=== PATIENT | female | born 1970 | race Caucasian/White ===

== ENCOUNTER 2016-08-12 22:05 | Inpatient (IN) | payer MEDICAID ==
[~2016-08-12] VITALS: Ht 160 cm; Wt 129.0 kg
--- NOTE | ~2016-08-12 | ER ---
PATIENT'S NAME: [facility] AGE: 46 Y [address] ROOM: [place] [address] LOCATION: GPCU ADMIT DATE: 08/12/2016 ER/Outpatient Report DISCHARGE DATE: FAMILY PHYSICIAN: Reynaldo Maharaj MD ATTENDING PHYSICIAN: CHRISTINA WESLEY Time of Arrival: 2205 hours. Time of Evaluation: 2225 hours. CHIEF COMPLAINT: Shortness of breath. HISTORY OF PRESENT ILLNESS: This is a 46-year-old lady, who presents to the ER this evening with worsening of shortness of breath over the past 6 days. The patient does have a past medical history of pulmonary hypertension, congestive heart failure, and has had pulmonary edema in the past. The patient states that she was hospitalized last year, was intubated, and spent some time in the ICU. She states ever since then she has been having troubles with her lungs. She states that she does not follow with any service center coordinator or rn ed, but does see her primary care physician. She states that she was evaluated in clinic on Sunday because she was gaining fluid and they added metolazone to her diuretic regimen, which was Bumex. The patient states that she lost approximately 13 pounds since Sunday, but feels like her shortness of breath progressively got worse. She states she was coughing up some green thick phlegm, but now is not able to cough up any phlegm. She states she has coughing episodes where she feels like she is going to pass out or black out. She states that she has had leg swelling and has severe orthopnea. She denies any fever or chills. No chest pain, but just states that it is a tight pressure from not being able to cough up any phlegm. ALLERGIES: LATEX SENSITIVITY. PAST MEDICAL HISTORY: 1. Significant for chronic respiratory failure. 2. Pulmonary hypertension. 3. Right-sided heart failure. 4. Obesity. 5. Diabetes and hypothyroidism. SOCIAL HISTORY: The patient denies any smoking use. No drugs or alcohol. REVIEW OF SYSTEMS: PATIENT'S NAME: [facility] AGE: 46 Y [address] ROOM: [place] [address] LOCATION: GPCU ADMIT DATE: 08/12/2016 ER/Outpatient Report DISCHARGE DATE: FAMILY PHYSICIAN: Reynaldo Maharaj MD ATTENDING PHYSICIAN: CHRISTINA WESLEY A 10-point review of systems was completed, was negative with the exception of those discussed in the HPI. PHYSICAL EXAMINATION: VITAL SIGNS: Height 5 feet and 3 inches stated, weight 134 kg taken, blood pressure is 120/74, pulse 98, respirations 24, temperature 98.8 degrees tympanically, and saturations 94% on room air. Dutch Coma score is 15. GENERAL: Alert, obese female, in mild distress. HEENT: Head: Normocephalic. She does display moist mucous membranes. Eyes: Pupils are equal and reactive to light. NECK: Supple. No lymphadenopathy noted. HEART: Regular rate and rhythm. No lifts, thrills, or murmurs. RESPIRATORY: Clear to auscultation bilaterally. She does have a harsh nonproductive cough during examination. ABDOMEN: Soft. Obese. It is nontender. She has good bowel sounds throughout. EXTREMITIES: She has 2 to 3+ pitting edema bilaterally in the lower extremities. SKIN: She does have some bilateral lower extremity stasis dermatitis. NEURO: Cranial nerves II through XII grossly intact. Gait was not observed and she was assisted to the bed by nursing staff. LABORATORY DATA AND X-RAYS: CBC: White count of 6.2, hemoglobin 12.3, platelets 225, and ANC is 4.9. CMS: Potassium 3.4, glucose is 101, BUN 44, creatinine 2.5, alkaline phosphatase is 151, estimated GFR is 21, CPK is 57, CK-MB is less than 0.5, troponin I is less than 0.040, proBNP is 5803. EKG shows sinus rhythm. She does have some right axis deviation. Chest x-ray shows cardiomegaly, no acute infiltrate was seen. IMPRESSION: 1. Acute on chronic hypoxic respiratory failure. 2. Acute kidney insufficiency. 3. Acute exacerbation of congestive heart failure. 4. History of diabetes. ASSESSMENT AND PLAN: The patient does not have a primary care physician here in [place], therefore we called Dr. Wesley, who is on-call for the Hospitalist Service, and he will be admitting the patient for further care. The patient was given albuterol breathing treatment, which she states helped her open up a little bit during her stay here. The patient and patient's understand and agree with care. PATIENT'S NAME: BRITTANY RAMON [facility] AGE: 46 Y [address] ROOM: [address] [place], [place] [address] LOCATION: [facility] ADMIT DATE: 08/12/2016 ER/Outpatient Report DISCHARGE DATE: FAMILY PHYSICIAN: Reynaldo Maharaj MD ATTENDING PHYSICIAN: HCRISTINA WESLEY ABEL GAMA PA-C FOR MD ÁLVARO ULRICH/modl /[id number] d: 08/13/16 1911 t: 09/11/16 0957, OUTPATIENT REPORT
--- NOTE | ~2016-08-12 | DS ---
PATIENT'S NAME: BRITTANY RAMON [facility] AGE: 46 Y [address] ROOM: [address] [place], [place] [address] LOCATION: GPCU ADMIT DATE: 08/12/2016 Discharge Summary DISCHARGE DATE: 08/19/2016 FAMILY PHYSICIAN: Reynaldo Maharaj MD ATTENDING PHYSICIAN: Digna Wesley HOSPITAL COURSE: The patient was admitted on August 12, 2016, complaining of shortness of breath. The patient has a past medical history of pulmonary hypertension, right-sided congestive heart failure, diabetes, hypothyroidism, and she uses BiPAP or 3 L at night. The patient was admitted last year with some massive fluid overload, and she was diuresed and discharged home. The patient started having shortness of breath that started a few weeks before admission and gotten worse, and she reported to the hospital when the situation had gotten worse. She uses BiPAP 18/10 with 3 L of oxygen for NAILA/OHS. Upon admission to the hospital, influenza screening showed that she has influenza type A. The patient was started on Tamiflu. Sputum culture showed Staph aureus, methicillin sensitive, and she was started on doxycycline. Echo at this visit showed that she had an ejection fraction of 50% and RVSP of 79. The patient was started on 5 L of oxygen on admission. She continued to improve throughout her course here, and today, she is on room air, stating has not been with shortness of breath. Plan is to discharge her home, and will continue the course of Tamiflu and the antibiotic course of doxycycline. Also, she was diuresed, and nephrology were onboard during the hospital course. On admission, kidney function was acute on chronic failure. Kidney back to the baseline. Creatinine is 1.3 today. The patient is still on metformin. We highly recommend switching to a different oral hypoglycemic medication. PHYSICAL EXAMINATION: On the day of discharge. VITAL SIGNS: Temperature is 97.6, pulse of 84, respiratory rate of 18, blood pressure is 121/82, and oxygen saturation is 92% on room air. GENERAL APPEARANCE: Alert, awake, oriented x3. RESPIRATORY: Clear to auscultation bilaterally. Cardiovascular: S1 plus S2 plus 0. GASTROINTESTINAL: Soft, lax, nontender. NEUROLOGIC: Grossly normal. LABORATORY DATA: On discharge, sodium of 142, potassium 3.4, chloride of 107, bicarbonate of 24, BUN of 43, and creatinine of 1.3. CONDITION ON DISCHARGE: Improved. DISCHARGE DESTINATION: Home. CONSULTANTS ON THIS ADMISSION: PATIENT'S NAME: BRITTANY RAMON [facility] AGE: 46 Y [address] ROOM: [address] [place] [address] LOCATION: GPCU ADMIT DATE: 08/12/2016 Discharge Summary DISCHARGE DATE: 08/19/2016 FAMILY PHYSICIAN: Reynaldo Maharaj MD ATTENDING PHYSICIAN: Digna Wesley 1. Nephrology, Dr. Metz. 2. Respiratory. DIET: Diabetic healthy diet, low sodium. ACTIVITY: Advance as tolerated. FOLLOWUP: Please follow up with primary care in one week and with Nephrology in 2 weeks. FRANCISCA DOTY MD MG/modl /[id number] d: 08/19/16 1324 t: 10/02/16 0838, DISCHARGE SUMMARY
--- NOTE | ~2016-08-12 | DS ---
PATIENT'S NAME: BRITTANY RAMON [facility] AGE: 46 Y [address] ROOM: [address] [place], [place] [address] LOCATION: GPCU ADMIT DATE: 08/12/2016 Discharge Summary DISCHARGE DATE: 08/19/2016 FAMILY PHYSICIAN: Reynaldo Maharaj MD ATTENDING PHYSICIAN: Digna Wesley HOSPITAL COURSE: The patient was admitted on August 12, 2016, complaining of shortness of breath. The patient has a past medical history of pulmonary hypertension, right-sided congestive heart failure, diabetes, hypothyroidism, and she uses BiPAP or 3 L at night. The patient was admitted last year with some massive fluid overload, and she was diuresed and discharged home. The patient started having shortness of breath that started a few weeks before admission and gotten worse, and she reported to the hospital when the situation had gotten worse. She uses BiPAP 18/10 with 3 L of oxygen for NAILA/OHS. Upon admission to the hospital, influenza screening showed that she has influenza type A. The patient was started on Tamiflu. Sputum culture showed Staph aureus, methicillin sensitive, and she was started on doxycycline. Echo at this visit showed that she had an ejection fraction of 50% and RVSP of 79. The patient was started on 5 L of oxygen on admission. She continued to improve throughout her course here, and today, she is on room air, stating has not been with shortness of breath. Plan is to discharge her home, and will continue the course of Tamiflu and the antibiotic course of doxycycline. Also, she was diuresed, and nephrology were onboard during the hospital course. On admission, kidney function was acute on chronic failure. Kidney back to the baseline. Creatinine is 1.3 today. The patient is still on metformin. We highly recommend switching to a different oral hypoglycemic medication. PHYSICAL EXAMINATION: On the day of discharge. VITAL SIGNS: Temperature is 97.6, pulse of 84, respiratory rate of 18, blood pressure is 121/82, and oxygen saturation is 92% on room air. GENERAL APPEARANCE: Alert, awake, oriented x3. RESPIRATORY: Clear to auscultation bilaterally. Cardiovascular: S1 plus S2 plus 0. GASTROINTESTINAL: Soft, lax, nontender. NEUROLOGIC: Grossly normal. LABORATORY DATA: On discharge, sodium of 142, potassium 3.4, chloride of 107, bicarbonate of 24, BUN of 43, and creatinine of 1.3. CONDITION ON DISCHARGE: Improved. DISCHARGE DESTINATION: Home. CONSULTANTS ON THIS ADMISSION: PATIENT'S NAME: BRITTANY RAMON [facility] AGE: 46 Y [address] ROOM: [address] [place] [address] LOCATION: GPCU ADMIT DATE: 08/12/2016 Discharge Summary DISCHARGE DATE: 08/19/2016 FAMILY PHYSICIAN: Reynaldo Maharaj MD ATTENDING PHYSICIAN: Digna Wesley 1. Nephrology, Dr. Metz. 2. Respiratory. DIET: Diabetic healthy diet, low sodium. ACTIVITY: Advance as tolerated. FOLLOWUP: Please follow up with primary care in one week and with Nephrology in 2 weeks. FRANCISCA DOTY MD MG/modl /[id number] d: t: 08/19/16 1331, DISCHARGE SUMMARY
--- NOTE | ~2016-08-12 | PUL ---
PATIENT'S NAME: BRITTANY RAMON [facility] AGE: 46 Y [address] ROOM: [address] [address] LOCATION: GPCU ADMIT DATE: 08/12/2016 Pulmonary DISCHARGE DATE: FAMILY PHYSICIAN: Reynaldo Maharaj MD ATTENDING PHYSICIAN: CHRISTINA AGUERO NAME OF PROCEDURE: Bedside Spirometry DATE OF PROCEDURE: August 13, 2016 TECH: ATripe, CARTOON DESIGNER REASON FOR EXAM: Dyspnea RESULTS: Spirometry does not demonstrate significant airflow obstruction. There is no significant change post bronchodilator. TARIK RIVERA MD /[id number] dtt: 08/25/16 1304 Ron David E. dtd: 08/15/16 1247
--- NOTE | ~2016-08-12 | ECHO ---
Transthoracic Echocardiography Report (TTE) Demographics Patient Name BRITTANY RAMON Date of Study 08/14/2016 Patient Number [id number] Visit Number [id number] Date of 1970 Room Number [address] Accession Number [id number] Gender Female Age 46 year(s) Referring Carol Ann Kelley MD Frame Table Operator Bren Kincaid Physician Lupillo Chew [facility] MD Jorge Castillo Physician Interpreting Amy Horseback Riding Instructor Physician Kathy BOLDEN Supervising Ordering Physician Lupillo Chew MD/MLP Nurse Stress Bingo Checker Conclusions Contractility Score Summary At rest the following contractility abnormalities were noted: Dyskinesis of the Mid anterior, the Mid oma-septal, the Mid infero-septal, the Apical septal, the Basal oma-septal, the Basal infero-septal, the Apical anterior and the Basal anterior segments. Contractility of all other segments appeared normal. Summary Technically difficult exam. The estimated left ventricular ejection fraction is 50%.The left ventricle is normal in size .The interventricular septum is flattened during systole and diastole consistent with right ventricular pressure and volume overload. Severely dilated RHCs. Mildly reduced right ventricular function. Increased RA pressures. Severe tricuspid regurgitation by color Doppler. There is severe pulmonary hypertension. The pulmonary pressure (RVSP) is 79 mmHg. Mild-moderate pulmonic valve regurgitation by color Doppler. Procedure Type of Study TTE procedure:2D Echocardiogram, Echo with Contrast. Procedure Date Date: 08/14/2016 Start: 09:38 AM Study Location: Inpatient Portable Technical Quality: Adequate visualization Indications:Congestive heart failure. Appropriate Use Criteria: 9 Patient Status: Routine Contrast Medium: Definity. Amount - 3 ml HR: 94 bpm BP: 112/64 mmHg M-Mode/2D Measurements LV Diastolic Dimension: 3.7 cm LV Systolic Dimension: 2.7 cm LV Septum Diastolic: 1.07 cm LV PW Diastolic: 0.82 cm Cardiac Output: 2.96 l/min LA Dimension: 3.5 cm LVOT: 1.8 cm LVOT VTI: 12.4 cm RV Base: 4.28 cm LV Stroke volume: 31.54 ml RV Length: 7.15 cm TAPSE: 1.31 cm TDI-S': 11.8 cm/s Doppler Measurements AV Peak Velocity: 1.16 m/s MV Peak E-Wave: 0.59 m/s AV Peak Gradient: 5.38 mmHg MV Peak A-Wave: 0.43 m/s AV Mean Gradient: 3 mmHg MV E/A Ratio: 1.38 LVOT Peak Velocity: 0.79 m/s MV P1/2t: 32 msec TR Gradient:64 mmHg PV Peak Velocity: 0.87 m/s Estimated RAP:15 mmHg PV Peak Gradient: 3.01 mmHg Estimated RVSP: 79 mmHg Estimated PASP: 79 mmHg E' Septal Velocity: 0.06 m/s A' Septal Velocity: 0.08 m/s E' Lateral Velocity: 0.12 m/s A' Lateral Velocity: 0.08 m/s Findings Left Ventricle The left ventricle is normal in size and function. The interventricular septum is flattened during systole and diastole which is consistent with right ventricular pressure / and or volume overload. Right Ventricle Mildly reduced right ventricular function. Severely dilated right ventricle. Left Atrium Normal left atrial size. Right Atrium The right atrium is severely dilated. IVC measures 2.45 cm with no inspiratory collapse. Mitral Valve Trivial mitral regurgitation by color Doppler. Mild mitral annular calcification. Trivial calcification of the mitral valve. Aortic Valve Normal aortic valve structure and function. Tricuspid Valve Severe tricuspid regurgitation by color Doppler. There is severe pulmonary hypertension. The pulmonary pressure (RVSP) is 79 mmHg. Pulmonic Valve Mild pulmonic valve regurgitation by color Doppler. Pericardial Effusion No evidence of pericardial effusion. Miscellaneous Visualized portions of the aortic root and ascending aorta appear normal in size. Pleural Effusion No evidence of pleural effusion. Contractility Score LV regional wall motion:(0-Non visualized 1-Normal 2-Hypokinesis 3-Akinesis 4-Dyskinesis 5-Aneurysm) Signature dtt: Kathy Reyes dtd: 08/14/16 0938 Physician Self Edit
--- NOTE | ~2016-08-12 | CON ---
PATIENT'S NAME: [facility] AGE: 46 Y [address] ROOM: [place] [id number] LOCATION: GPCU ADMIT DATE: 08/12/2016 Consultation DISCHARGE DATE: FAMILY PHYSICIAN: Reynaldo Maharaj MD ATTENDING PHYSICIAN: CHRISTINA AGUERO DATE OF CONSULTATION: 08/13/2016 REFERRING PHYSICIAN: Corky Velasquez MD REFERRING: Hospitalist Service. REASON FOR REFERRAL: Shortness of breath. HISTORY OF PRESENT ILLNESS: The patient is a 46-year-old massively obese woman, admitted with progressive shortness of breath since mid July and fluid retention. She was hospitalized about a year ago here with massive volume overload presumably due to right-sided heart failure. The cause of her right-sided heart failure was attributed to obesity and obstructive sleep apnea. Interestingly, she had a positive D-dimer at that time. PE protocol CT scans were ordered, but never completed presumably due to renal efficiency. I do not see any document studies, ruling out pulmonary embolism at that time. Ultimately, she was discharged after massive diuresis and has been wearing nighttime oxygen and BiPAP since then. She says her face is full with both of those. Starting in mid July, she was experiencing more shortness of breath both with activity and recumbency. She has. She also states she started retaining more fluid. She ultimately transferred here for admission due to those symptoms. PAST MEDICAL HISTORY: Please refer to the admission history and physical exam. FAMILY HISTORY: As above and per attending physician H and P. SOCIAL HISTORY: As above and per attending physician H and P. REVIEW OF SYSTEMS: As above and per attending physician H and P. PHYSICAL EXAMINATION: GENERAL: Awake, alert, sitting in the chair, no distress at rest. Oxygen 1-2 L by nasal cannula. Massively obese. PATIENT'S NAME: [facility] AGE: 46 Y [address] ROOM: [place] [id number] LOCATION: GPCU ADMIT DATE: 08/12/2016 Consultation DISCHARGE DATE: FAMILY PHYSICIAN: Reynaldo Maharaj MD ATTENDING PHYSICIAN: CHRISTINA AGUERO ENT: Unremarkable. NECK: Normal. CHEST: Obese. LUNGS: Diminished, but clear. HEART: Regular. ABDOMEN: Obese, nontender. EXTREMITIES: Significant edema. ASSESSMENT: Exacerbation of right-sided heart failure. PLAN: I think we need to rule out pulmonary embolic disease given her prior positive D-dimer and no studies to rule that out. We will also check bedside spirometry. Chest x-ray demonstrates elevation of the right hemidiaphragm which may indicate diaphragmatic paralysis which would also contribute to her right-sided heart failure. We will follow with you. MD DURGA ASCENCIO/modl /[id number] d: 08/13/167 t: 08/25/16 1302, CONSULTATION REPORT
--- NOTE | ~2016-08-12 | HP ---
PATIENT'S NAME: [facility] AGE: 46 Y [address] ROOM: [place] [address] LOCATION: GPCU ADMIT DATE: 08/12/2016 History & Physical DISCHARGE DATE: FAMILY PHYSICIAN: Reynaldo Maharaj MD ATTENDING PHYSICIAN: CHRISTINA AGUERO DATE OF SERVICE: CHIEF COMPLAINT: Shortness of breath. HISTORY OF PRESENT ILLNESS: A 46-year-old lady with a past medical history of pulmonary hypertension, right-sided congestive heart failure, diabetes, and hypothyroidism who does not follow with a photography manager or a professor of architecture. Lives at home. Started having shortness of breath over the course of last 4 to 6 weeks associated with some pressure in the chest which is nonradiating, present all the time. No alleviating or aggravating factors. She denied having any cough or sputum production along with her shortness of breath. She also does have obesity hypoventilation syndrome and does use BiPAP 18 x 10 at home, with 3 L of oxygen at nighttime. She sought medical attention 2 weeks ago when metolazone was added to her diuretic regimen which was Bumex and she was able to lose about 13 pounds of her weight, but her pulmonary symptoms in terms of shortness of breath never got better and progressively got worse which triggered her visit to the emergency department tonight. On further review of systems, she did endorse having severe orthopnea as well as leg swelling but denied having any PND. She never had a coronary artery disease. REVIEW OF SYSTEMS: All other systems reviewed were negative except what is mentioned in the HPI. PAST MEDICAL HISTORY: 1. Significant for chronic respiratory failure. 2. Pulmonary hypertension. 3. Right-sided heart failure. 4. Obesity hypoventilation syndrome. 5. Diabetes. 6. Hypothyroidism. MEDICATIONS: Please see MAR. ALLERGIES: NO KNOWN DRUG ALLERGIES. PATIENT'S NAME: [facility] AGE: 46 Y [address] ROOM: [place] [address] LOCATION: GPCU ADMIT DATE: 08/12/2016 History & Physical DISCHARGE DATE: FAMILY PHYSICIAN: Reynaldo Maharaj MD ATTENDING PHYSICIAN: CHRISTINA AGUERO FAMILY HISTORY: Family history is significant for premature coronary artery disease in mother when she had coronary artery disease at the age of 46. SOCIAL HISTORY: Never a smoker. No drugs or alcohol use. PHYSICAL EXAMINATION: VITAL SIGNS: Blood pressure 136/76, 100, satting 98% on 2 L of oxygen, respiratory rate of 20, afebrile. GENERAL: In moderate acute distress due to dyspnea. Alert and oriented x3. HEAD: Atraumatic, normocephalic. EYES: Nonicteric. No pallor. NECK: [place] obese neck. No thyromegaly or lymphadenopathy noted. CARDIOVASCULAR: S1 and S2. No murmur or gallops heard. JVD elevated. RESPIRATORY: Clear to auscultation bilaterally. ABDOMEN: Soft, nontender, nondistended. Bowel sounds present. EXTREMITIES: Reveal +3 extremity edema. SKIN: Lower extremity skin reveals some stasis dermatitis. No bruise or rashes noted. PSYCH: Normal affect, mood, and speech. NEURO: Cranial nerves II through XII intact. No motor or sensory deficit. LABORATORY DATA: Lab work done in the emergency department today revealed a white count of 6.2, hemoglobin of 12, platelets of 225. BUN of 44, creatinine of 2.5, sodium 139, potassium 3.4, chloride 97, bicarb of 27, calcium of 8.6. Troponin one set was negative. Chest x-ray was done, which did show cardiomegaly without evidence of any pulmonary edema, pleural effusion, or infiltrate per my read. ASSESSMENT AND PLAN: 1. Acute on chronic hypoxic respiratory failure. 2. Acute kidney injury. 3. Acute exacerbation of congestive heart failure, predominantly right-sided symptoms. 4. Hypothyroidism. 5. Diabetes. 6. Obesity hypoventilation syndrome. We are going to admit this patient to inpatient. At this point, we are going to start her on noninvasive mechanical ventilation with BiPAP which she is on at nighttime. We will provide supplemental oxygen. She will need echocardiography as well as more accurate assessment of intravascular volume status prior to decision of instituting more diuretic therapy given her worsening kidney function. We are going to get urine sodium creatinine and PATIENT'S NAME: BRITTANY RAMON [facility] AGE: 46 Y [address] ROOM: [place] [address] [facility] ADMIT DATE: 08/12/2016 History & Physical DISCHARGE DATE: FAMILY PHYSICIAN: Reynaldo Maharaj MD ATTENDING PHYSICIAN: CHRISTINA AGUERO to help us with that. Given the complicated nature, we will consult Pulmonary and Nephrology colleagues as well to help with management of this patient. We will continue the home dose of Levemir and put her on sliding scale insulin. Heparin for DVT prophylaxis. Low-sodium diet. Fluid restriction to 1500 mL at this point. The patient is full code. Wells score is 1. We will follow along this patient. CHRISTINA AGUERO MD FAITH/modl /[id number] D: T: HISTORY & PHYSICAL
--- NOTE | ~2016-08-12 | CON ---
PATIENT'S NAME: [facility] AGE: 46 Y [address] ROOM: [place] [id number] LOCATION: GPCU ADMIT DATE: 08/12/2016 Consultation DISCHARGE DATE: FAMILY PHYSICIAN: Reynaldo Maharaj MD ATTENDING PHYSICIAN: CHRISTINA AGUERO DATE OF CONSULTATION: 08/12/2016 REFERRING PHYSICIAN: Corky Velasquez MD REQUESTING PHYSICIAN: Dr. Marie. REASON FOR CONSULTATION: Elevated BUN and creatinine. HISTORY OF PRESENT ILLNESS: The patient is a 46-year-old white female, who was diagnosed with pulmonary hypertension about a year ago. She tends to have dependent edema. Recently, metolazone was added to her usual dose of Bumex. She lost 13 pounds in 2 weeks. The patient was taking Aleve possibly every other or every third day because of joint pain. The patient was admitted to the hospital with increasing shortness of breath, and her creatinine was noted to be 2.5. Last year, creatinine was 1.2 and earlier last year creatinine was 0.7. She is not on any SAULO inhibitor or ARB. Dr. Marie was concerned and asked me to see this lady for a Nephrology consultation. REVIEW OF SYSTEMS: GENERAL: She denies any fever or chills. HEENT: She has sinus congestion and itching, denies any sore throat. Denies any allergies or hay fever. RESPIRATORY: Denies any chest pain. She does have dyspnea on exertion. ABDOMEN: Denies any abdominal pain, nausea, vomiting, or diarrhea. GENITOURINARY: She denies any kidney stone or hematuria. LYMPHATICS: Denies any lymph node enlargement or easy bruising. PSYCHIATRIC: Denies any sadness, crying spells, poor concentration, or panic attack. ALLERGIES: ALLERGIC TO LATEX. MEDICATIONS: Outpatient medications include, 1. Bumex 2 mg every day. 2. Levothyroxine 100 mcg a day. 3. Omeprazole 40 mg a day. PATIENT'S NAME: [facility] AGE: 46 Y [address] ROOM: [place] [address] LOCATION: GPCU ADMIT DATE: 08/12/2016 Consultation DISCHARGE DATE: FAMILY PHYSICIAN: Reynaldo Maharaj MD ATTENDING PHYSICIAN: CHRISTINA AGUERO 4. Metformin 1000 mg twice a day. 5. Insulin detemir 8 units subcutaneously every day. 6. Potassium orally. 7. Metolazone 5 mg a day. 8. Naproxen 220 mg as an outpatient. 9. BiPAP every day. PAST MEDICAL HISTORY: Obesity, obesity hypoventilation syndrome, severe pulmonary hypertension, dependent edema, hypothyroidism, peptic ulcer disease, diabetes mellitus, hypokalemia. PAST SURGICAL HISTORY: Tonsillectomy and tubal ligation. FAMILY HISTORY: No family history of kidney disease or dialysis. SOCIAL HISTORY: No history of tobacco or alcohol. PHYSICAL EXAMINATION: GENERAL APPEARANCE: This is a 46-year-old morbidly obese white female, lying in the hospital bed, wearing oxygen via nasal cannula. VITAL SIGNS: Temperature 97.4, pulse 96, systolic blood pressure 113, diastolic , respiratory rate of 20. HEAD: Normocephalic. HEENT: Pupils are round and equal. Normal eyelid and pale conjunctivae. Oral cavity clear. Moist mucosa. NECK: Trachea is central. No thyromegaly. Unable to evaluate jugular venous pulsation. HEART: Sounds are audible in all the areas without any gallop or murmur. Pulses regular in rhythm. LUNGS: Diminished breath sounds as a whole. No intercostal retraction. ABDOMEN: Obese, soft, nontender. I am not able to palpate liver or spleen. EXTREMITIES: No clubbing or cyanosis. SKIN: No sign of vasculitis. LYMPHATICS: I did not examine any lymphatics. She has 1+ leg edema bilaterally. NEUROLOGICALLY: She is alert and oriented x3, and grossly nonfocal. HIGHER PSYCHIATRIC FUNCTION: She has hoarse voice, but she has good memory and speech. LABORATORY DATA: Glucose 101, BUN 44, creatinine of 2.5, sodium 139, potassium 3.4, chloride PATIENT'S NAME: [facility] AGE: 46 Y [address] ROOM: [id number] [place], [place] [address] LOCATION: GPCU ADMIT DATE: 08/12/2016 Consultation DISCHARGE DATE: FAMILY PHYSICIAN: Reynaldo Maharaj MD ATTENDING PHYSICIAN: HCRISTINA AGUERO 97, bicarb 27, calcium 8.6, albumin 2.5, GFR 21. Her hemoglobin is 12.0, hematocrit 40.5, WBC 6.2, platelet count 225. ASSESSMENT: 1. Acute kidney injury, most likely this is prerenal in etiology. The patient was diuresed aggressively and she was also taking naproxen. 2. Severe pulmonary hypertension. 3. Obesity. 4. Obesity hypoventilation syndrome. 5. Diabetes mellitus. 6. Hypothyroidism. PLAN: I am going to order renal ultrasound to look at her renal anatomy. She did have urinalysis, and the patient does not have any protein in the urine. We will follow renal function closely while she is in the hospital. Obviously, we are going to avoid naproxen and other nephrotoxic drugs. I also agree with holding on diuretics for now. I would like to thank Dr. Marie for allowing me to participate in this patient's care. M MD SUSIE LI/james /[id number] CC: Reynaldo Maharaj MD d: [id number] t: 08/14/16 1000, CONSULTATION REPORT
[~2016-08-12 22:05] MED LIST: BUMEX1 MG PO; FLAGYL500 MG PO; GLUCOPHAGE500 MG PO; K-TAB 10MEQ10 MEQ PO; LEVEMIR100 UNIT/1 SUB-Q; LEVOTHROID (S100 MCG PO; PRILOSEC20 MG PO
[2016-08-12 22:49] LABS: BASOPHIL % 0.5 %; EOSINOPHIL % 0.2 %; HEMATOCRIT 40.5 % (33.0-46.0); HEMOGLOBIN 12.3 g/dL (10.0-15.0); IMMATURE GRANULOCYTE % 0.3 %; LYMPHOCYTE # 0.7 K/uL (0.8-4.0); LYMPHOCYTE % 11.3 %; MCHC 30.4 gm/dL (32.0-36.5); MCV 78.9 fl (83.0-98.0); MONOCYTE # 0.5 K/uL (0.0-1.0); MONOCYTE % 8.2 %; MPV 9.9 fl (9.4-12.4); NEUTROPHIL # (ANC) 4.9 K/uL (1.8-7.8); NEUTROPHIL % 79.5 %; NRBC % 0 /100WBC (0-0.00); PLATELET COUNT 225 K/uL (150-450); RBC 5.13 M/uL (3.50-5.50); RDW-CV 18.2 % (11.9-14.6); WBC 6.2 K/uL (4.0-11.0)
[2016-08-12 23:07] LABS: ALBUMIN 3.5 gm/dL (3.5-5.0); ALK PHOS 151 IU/L (33-138); ALT 23 IU/L (12-78); ANION GAP 18.4 (10.0-19.0); AST 23 IU/L (10-40); BLOOD UREA NITROGEN 44 mg/dL (6-24); CALCIUM 8.6 mg/dL (8.5-10.5); CHLORIDE 97 mMol/L (96-110); CO2 27 mMol/L (22-32); CPK 57 IU/L (21-215); CREATININE 2.5 mg/dL (0.5-1.1); ESTIMATED GFR (MDRD EQUATION) 21; POTASSIUM 3.4 mMol/L (3.7-5.1); SODIUM 139 mMol/L (135-145); TOTAL BILIRUBIN 1.4 mg/dL (0.0-1.5); TOTAL PROTEIN 6.8 g/dL (6.0-8.4)
[2016-08-13] MEDS ORDERED: POTASSIUM99 M1 PO ×2 (01:13)
[2016-08-13] MEDS ORDERED: METOLAZONE5 MG PO (01:14)
[2016-08-13] MEDS ORDERED: ALEVE220 M1 PO (01:15)
[2016-08-13] MEDS ORDERED: VICKS NYQUIL C354 M2 PO (01:16)
[2016-08-13] MEDS ORDERED: OXYGEN M-15 INH (01:17)
[2016-08-13] MEDS ORDERED: BIPAP INH (01:18)
--- NOTE | 2016-08-13 01:30 | NUR ---
Pt presents ot ER with complaints of shortness of breath that has worsened over the last 6 days. She saw her PCP in [place] on Sunday who started her on an aditional diuretic but was told to come here if she didn't improve. Pt is on 2L/NC with sats in the 90's. Extremely short of breath with activity, does not tolerate. Pt is A/Ox3. VSS. No complaints of pain. Up SBA, will use commode until able to tolerate activity. Will start pt on bipap tonight.
[2016-08-13 03:00] LABS: BICARBONATE 25.5 mmol/L (18.0-23.0); PCO2 26 mmHg (35-45); PO2 59 mmHg (80-90)
--- NOTE | 2016-08-13 04:56 | NUR ---
Significant events: Pt A/Ox3. VSS. On 2L/NC while awake, Bipap while asleep. No complaints of pain. PO Diamox and PO KCl given. Up SBA, very SOB with activity. Commode for bathroom. IV to R) AC. Pulmonolgy and Renal consult in AM. ACHS accucheck. 1500mL fluid restrict.
[2016-08-13 05:07] LABS: BILIRUBIN URINE NEGATIVE (NEGATIVE); BLOOD URINE NEGATIVE /UL (NEGATIVE); COLOR URINE YELLOW (YELLOW); GLUCOSE URINE NEGATIVE (NEGATIVE); KETONE URINE NEGATIVE (NEGATIVE); LEUKOCYTES URINE NEGATIVE /UL (NEGATIVE); NITRITE URINE NEGATIVE (NEGATIVE); PROTEIN URINE NEGATIVE (NEGATIVE); TURBIDITY URINE CLEAR (CLEAR); UROBILINOGEN URINE NORMAL (NORMAL)
--- NOTE | 2016-08-13 18:31 | NUR ---
Significant Event:Patient had D-Dimer, was wNL. Dr. Velasquez and Dr. Metz saw. Was started on Solumedrol. Had good urine output of 2000 ml. Is on fluid restriction. Ultram for pain once- chronic back and neck pain. Will be on Levimer. Follow up:Renal U/S
--- NOTE | 2016-08-14 05:00 | NUR ---
Significant Event: SBP low 100's-1 teens. HR's 80's-90's. Afebrile. 2L of oxygen while awake and bipap at HS. Bipap started at 35% FiO2 and was increased during the night to 45% due to sats 88%. At 0430 patient was able to cough up brown/green thick sputum. Bipap decreased to 40% FiO2 and sats have improved. Question if mucinex would help? Up to bedside commode with 1 assist. Patient does get short of breath when up. 1500ml FR. has been NPO since midnight for kidney ultrasound this AM. Right buttock pressure ulcer, patient refused aloe tonight. Repositions self in bed. Rested well. Follow up: ? mucinex. Plan for kidney ultrasound today. Continue to monitor resp. status.
[2016-08-14 09:42] LABS: ALBUMIN 3.5 gm/dL (3.5-5.0); ANION GAP 14.1 (10.0-19.0); PHOSPHORUS 3.6 mg/dL (2.5-4.9); POTASSIUM 3.1 mMol/L (3.7-5.1)
--- NOTE | 2016-08-14 14:15 | NUR ---
Introduced self and CM role to Magda and her daughter who was at bedside. Magda resides at home with her and it is her plan to return there when she is able to. She tells me right now "doctors are trying to switch around her medications and get them correct and then once we get all that figured out, I will be able to get back home. She denies any HHC follow up. She has a FWW at home but denies any additional DME upon dismissal. No other questions, needs or concerns. Will continue to follow and assist.
--- NOTE | 2016-08-14 19:10 | NUR ---
PATIENT UP IN WHITAKER X2 TODAY AND DID WELL. SHE HAS BEEN WEANED DOWN TO ROOM AIR TODAY. HER SATS HAVE BEEN 89-91 ON ROOM AIR TODAY. SHE WILL NEED TO HAVE HER BIPAP ON TONIGHT. PATIENT STATES SHE FEELS MUCH BETTER TODAY.
--- NOTE | 2016-08-15 04:59 | NUR ---
Significant Event:A/Ox3. VSS on RA^2L/NC^Bipap. Bipap at 40% FiO2. Up to BSC with minimal assist. SOB with activity. Sats drop to 77% when patient would lie down to go to sleep without bipap on. PIV to R)AC saline locked. Ultram at 2240 for c/o neck/back pain, with some relief noted. Follow up:Continue with plan of care.
[2016-08-15 05:06] LABS: ALBUMIN 3.3 gm/dL (3.5-5.0); ANION GAP 13.6 (10.0-19.0); CALCIUM 8.9 mg/dL (8.5-10.5); CREATININE 1.7 mg/dL (0.5-1.1); PHOSPHORUS 3.8 mg/dL (2.5-4.9); POTASSIUM 3.6 mMol/L (3.7-5.1)
--- NOTE | 2016-08-15 09:50 | NUR ---
Diabetes Consult: Patient reports having been diagnosed with pre-diabetes one year ago. Current A1C is 6.6%. The patient previously received diabetes education. She reports testing blood sugars twice daily and limiting her carb count to 75 grams of carbs. Blood sugars are well controlled at 128-171. Assisted the patient in completing the diabetes survival skills assessment. Patient denies any questions or needs.
--- NOTE | 2016-08-15 15:53 | NUR ---
Significant Event: pt given chf calendar pt had it last yr also. CXR done today for increase 02 need. IS to 1650. 02 1-2liters. PT amb [place] once. Commode 1asst. K 3.6. Harsh productive cough. NO c/o pain. Follow up:
[2016-08-16 03:35] LABS: ALBUMIN 3.3 gm/dL (3.5-5.0); ANION GAP 15.5 (10.0-19.0); CALCIUM 8.9 mg/dL (8.5-10.5); CREATININE 1.7 mg/dL (0.5-1.1); PHOSPHORUS 3.5 mg/dL (2.5-4.9); POTASSIUM 3.5 mMol/L (3.7-5.1)
--- NOTE | 2016-08-16 04:55 | NUR ---
Significant Event:Patient A/Ox3. VSS on 2L and on 40% FiO2 Bipap. Harsh productive cough with thick brown sputum noted. Cloraseptic spray in the room and can be used q3h PRN for sore throat. Senna started this HS with no results. Patient is not uncomfortable at this time but will take MOM this AM. Ultram given one time at 2210 for back pain with relief noted. Transfers 1 assist with walker and gets SOB. Ambulated to the bathroom x1 and increased oxygen to 4L with activity. Follow up:Continue to monitor respiratory status.
--- NOTE | 2016-08-16 14:25 | NUR ---
Significant Event: AOx3, no c/o pain. Tachycardic and dyspneic with activity. VS WNL at rest. Requires 4 L O2 when up and moving and still desats briefly to 89%. R) lung dim. Trace generalized edema. Milk of Mg given today, states she is passing gas but no BM as of this time. Harsh productive cough with brown sputum; culture collected and sent. Will do nasal wash with viral panel yet this shift. Ambulates with SBA, become dyspneic but tolerates. 1500 ml fluid restriction observed and patient complies. Pleasant and cooperative. Follow up: Per plan of care.
[2016-08-17 04:19] LABS: BASOPHIL % 0.2 %; HEMATOCRIT 40.4 % (33.0-46.0); IMMATURE GRANULOCYTE # 0.1 K/uL (0.0-0.3); IMMATURE GRANULOCYTE % 0.9 %; LYMPHOCYTE # 0.8 K/uL (0.8-4.0); LYMPHOCYTE % 8.8 %; MCH 23.6 pg (27.0-34.0); MCHC 29.7 gm/dL (32.0-36.5); MCV 79.5 fl (83.0-98.0); MONOCYTE # 0.8 K/uL (0.0-1.0); MONOCYTE % 8.6 %; MPV 10.4 fl (9.4-12.4); NEUTROPHIL # (ANC) 7.2 K/uL (1.8-7.8); NEUTROPHIL % 81.5 %; NRBC % 0.2 /100WBC (0-0.00); PLATELET COUNT 185 K/uL (150-450); RBC 5.08 M/uL (3.50-5.50); RDW-CV 18.7 % (11.9-14.6); WBC 8.9 K/uL (4.0-11.0)
[2016-08-17 04:31] LABS: ALBUMIN 3.3 gm/dL (3.5-5.0); ANION GAP 15.5 (10.0-19.0); CALCIUM 8.9 mg/dL (8.5-10.5); CREATININE 1.6 mg/dL (0.5-1.1); PHOSPHORUS 3.5 mg/dL (2.5-4.9); POTASSIUM 3.5 mMol/L (3.7-5.1)
--- NOTE | 2016-08-17 05:21 | NUR ---
Significant Event: Patient is alert/oriented x3. Vital signs stable. On 4L O2 during the day and BiPAP 40% FiO2 at night. Around 2300, patient had a severe coughing spell that left her feeling very short of breath. Dr. Ryder notified regarding worsening cough and he increased Mucinex to 1200 mg PO BID. RT also notified to give patient PRN breathing treatment. Patient reported signficant relief after breathing treatment. 2100 mL UOP after Bumex yesterday afternoon. She becomes significantly short of breath with any activity so she has been using BSC. Tramadol given x1 for lower back pain, with relief. In droplet isolation for influenza A. Follow up: Continue to monitor per plan of care.
--- NOTE | 2016-08-17 10:15 | NUR ---
A - PT SCREENED D/T LOS. FLU A. 1+ EDEMA. HT: 63" WT: 291# BMI: 51.6 LABS: ACCUCHECK WNL-REAS, K+ 3.5, GLU 115, BUN/CR 52/1.6, ALB 3.3 MEDS: SOLUMEDROL, LEVEMIR, SYNTHROID, SSI, TAMIFLU DIET: DIABETIC, 2-3 GM NA+, 1500 ML FLUID. INTAKE: MOSTLY 75-100% NEEDS: [id number] KCAL (11-14 KCAL/KG), 104-130 G PRO (2-2.5 G/KG IBW), 1500 ML FLUID (PER MD) D - NO NUTRITION RELATED DIAGNOSIS IDENTIFIED AT THIS TIME. I - GOAL FOR INTAKE TO REMAIN 75-100% FOR DURATION OF STAY. M/E - WILL ASSIST NEEDED.
--- NOTE | 2016-08-17 15:14 | NUR ---
Significant Event: pt up in room and to bathroom one asst. Pt throat better, still coughs brown thick sputum. 02 1.5liters when sitting up dangles at bedside all day. Pt had breathing tx this am as loosens pt up. K po given for 3.5. Ultram at 1500 for back sore. Commode for voids and pt had XLarge BM! Follow up:
--- NOTE | 2016-08-18 05:07 | NUR ---
Significant Event: Patient is alert/oriented x3. Vital signs stable. On 1.5L O2 during the day and BiPAP at 40% FiO2 at night. Patient reports cough has improved and stated she slept better than previous night. Phlegm is now more of a greenish color (was brown before). Tramadol given x1 last night for lower back pain, with relief. Adequate UOP, uses BSC due to becoming significantly SOB even with minimal exertion. In droplet isolation for influenza A. Follow up: Continue to monitor per plan of care. Will probably be here through Sunday.
[2016-08-18 06:06] LABS: ALBUMIN 3.3 gm/dL (3.5-5.0); ANION GAP 15.7 (10.0-19.0); CREATININE 1.4 mg/dL (0.5-1.1); PHOSPHORUS 3.5 mg/dL (2.5-4.9); POTASSIUM 3.7 mMol/L (3.7-5.1)
--- NOTE | 2016-08-18 10:49 | NUR ---
reviewed student charting and on the floor from [id number] [facility]
--- NOTE | 2016-08-18 16:04 | NUR ---
Significant Event: Patient A/O x 3. Up with SBA and walker. In droplet isolation for influenza. VSS. Weaned to RA at 1445. Tolerating well. Patient normally wears 3L with bipap at night. Respiratory cultures grew staphylococcus aureus so starting PO antibiotics. Gave PO bumex today. RAC PIV SL. Denies any other needs throughout the day. Ambulated in hallways with therapies. ACHS accu checks. Follow up: Continue as per plan of care. Possibly discharge tomorrow.
--- NOTE | 2016-08-19 04:32 | NUR ---
Significant events: Pt A/Ox3. VSS. Up with SBA and walker. In droplet isolation for influenza. On RA when awake and bipap while asleep. Tramadol at HS for back pain. ACHS accuchecks. Possible discharge today.
[2016-08-19 06:33] LABS: ALBUMIN 3.1 gm/dL (3.5-5.0); ANION GAP 14.4 (10.0-19.0); CALCIUM 8.7 mg/dL (8.5-10.5); CREATININE 1.3 mg/dL (0.5-1.1); PHOSPHORUS 3.4 mg/dL (2.5-4.9); POTASSIUM 3.4 mMol/L (3.7-5.1)
[2016-08-19] MEDS ORDERED: TAMIFLU75 MG PO (12:26)
[2016-08-19] MEDS ORDERED: LASIX20 MG PO (12:31)
[2016-08-19] MEDS ORDERED: DOXYCYCLINE100 MG PO (12:31)
--- NOTE | 2016-08-19 13:58 | NUR ---
Significant Event: A/O x3, cooperative with cares. VSS, SBPs 120s, HRs 80s, on room air during the day with CPAP at night. Tramadol given at 1218 for c/o [place], relief noted. Up in room to bathroom with assist of ; working with therapy. Dismissal instructions given to patient et ; dismissed to front lobby per w/c accompanied by nursing resident. Follow up:
== END 2016-08-19 13:55 | disposition disaster alternative care site (69) | DRG 291 ==
LOC: GMED 22:05 → GPCU 23:41
PROVIDERS: Internal Medicine Nephrology; Nurse Practitioner Family; Physician Assistant Medical; ADMIT Internal Medicine
DX: I50.9 Heart failure, unspecified (principal); J96.21 Acute and chronic respiratory failure with hypoxia; I27.2 Other secondary pulmonary hypertension; N17.9 Acute kidney failure, unspecified; N18.3 Chronic kidney disease, stage 3 (moderate); Z68.43 Body mass index [BMI] 50.0-59.9, adult; E66.2 Morbid (severe) obesity with alveolar hypoventilation; J10.01 Influenza due to other identified influenza virus with the same other identified influenza virus pneumonia; E11.9 Type 2 diabetes mellitus without complications; B95.61 Methicillin susceptible Staphylococcus aureus infection as the cause of diseases classified elsewhere; E03.9 Hypothyroidism, unspecified; Z79.4 Long term (current) use of insulin; E87.6 Hypokalemia; Z23 Encounter for immunization; I27.81 Cor pulmonale (chronic)
CPT/HCPCS: C8929; G0008; J1644; J2920; Q9957